=== PATIENT | female | born 1990 | race Caucasian/White ===

== ENCOUNTER 2024-09-28 00:57 | Inpatient (IN) | payer BC ==
[2024-09-28 01:20] VITALS: BMI 28.4
[2024-09-28] MEDS ORDERED: hydrALAZINE 20 MG/ML VIAL SLOW IVP PRN ×3 (01:42→13:57)
[2024-09-28] MEDS ORDERED: Promethazine HCl 25 MG/ML VIAL IM PRN ×2 (03:31→04:34)
[2024-09-28] MEDS ORDERED: Lidocaine 1% (PF) 30 ML VIAL SC PRN (03:31)
[2024-09-28] MEDS ORDERED: Methylergonovine 0.2 MG/ML VIAL IM PRN ×2 (03:31→13:57)
[2024-09-28] MEDS ORDERED: Misoprostol 200 MCG TAB PR PRN (03:31)
[2024-09-28] MEDS ORDERED: Tranexamic Acid 1,000 MG/10 ML VIAL IVP PRN (03:31)
[2024-09-28] MEDS ORDERED: Diphenoxylate HCl/Atropine Tablet PO PRN (03:31)
[2024-09-28] MEDS ORDERED: Carboprost 250 MCG/ML AMP IM PRN (03:31)
[2024-09-28] MEDS ORDERED: Ondansetron PF 4 MG/2 ML Vial IVP PRN ×3 (03:31→13:57)
[2024-09-28] MEDS ORDERED: Oxytocin 30 units/NS 500 ML 500 ML IV SCH ×3 (03:45→13:57)
[2024-09-28 04:09] LABS: Hematocrit 38.8 % (34.9-44.5); Hemoglobin 13.3 g/dL (12.0-15.5); Mean Corpuscular HGB CONC 34.3 g/dL (32.0-36.0); Mean Corpuscular Hemoglobin 31.4 pg (27.0-33.0); Mean Corpuscular Volume 91.7 fL (81.6-98.3); Mean Platelet Volume 12.4 fL (7.4-10.4); Platelet Count 169 10x3/uL (150-450); RBC Distribution Width 12.1 % (11.5-14.5); Red Blood Cell (RBC) Count 4.23 10x6/uL (3.90-5.03)
[2024-09-28] MEDS: fentaNYL/Ropivacaine Epidural 100 ML ONE (04:30)
[2024-09-28] MEDS ORDERED: ePHEDrine Sulfate 50 MG/10 ML VIAL SLOW IVP PRN (04:34)
[2024-09-28] MEDS ORDERED: Lactated Ringer's 500 ML IV PRN (04:34)
[2024-09-28] MEDS ORDERED: diphenhydrAMINE 50 MG/ML VIAL IVP PRN (04:34)
[2024-09-28] MEDS ORDERED: Moisturizing Cream (Eucerin) 113 GM JAR TOP PRN (04:34)
[2024-09-28] MEDS ORDERED: Naloxone HCl 0.4 mg/ml Vial IVP PRN ×2 (04:34)
[2024-09-28] MEDS ORDERED: Acetaminophen 325 MG TAB PO PRN (04:34)
[2024-09-28 04:40] LABS: Syphilis Antibody Nonreactive (Nonreactive); Syphilis Antibody Index 0.04 S/CO (<1.00 Non-Reactive)
[2024-09-28 04:41] LABS: HBsAg Index 0.19 S/CO (0-0.99); Hep B Surf Ag - L&D Non-Reactive S/CO (NonReactive)
[2024-09-28] MEDS ORDERED: fentaNYL 2 mcg/Ropivacaine 0.2% Epidural 100 ML CADD EPIDURAL SCH (04:45)
[2024-09-28] MEDS ORDERED: Communication Order-Pharmacy FS SCH (04:45)
[2024-09-28] MEDS ORDERED: Bupivacaine 0.25% HCL 30 ML VIAL ONE (08:00)
[2024-09-28] MEDS: Ondansetron PF 4 MG/2 ML Vial IVP SCH (13:55)
[2024-09-28] MEDS: Lactated Ringer's 1,000 ML IV SCH (13:55)
[2024-09-28] MEDS ORDERED: HYDROcodone/Acetaminophen 5/325 mg Tablet PO PRN ×2 (13:57)
[2024-09-28] MEDS ORDERED: Bisacodyl 10 MG SUPP PR PRN (13:57)
[2024-09-28] MEDS ORDERED: Milk Of Magnesia 30 ML UDCUP PO PRN (13:57)
[2024-09-28] MEDS ORDERED: Boostrix 0.5 ML (Tdap) VIAL (>/=7 yrs of age) IM ONE (13:57)
[2024-09-28] MEDS ORDERED: Lanolin Ointment 7 GM TUBE TOP PRN (13:57)
[2024-09-28] MEDS: Ibuprofen 800 MG TAB PO SCH (14:48)
[2024-09-28] MEDS: Benzocaine-Menthol 82.5 ML CAN TOP PRN (14:48)
[2024-09-28] MEDS: Ferrous Sulfate 325 MG TAB PO SCH (18:21)
[2024-09-28] MEDS: Docusate 100 MG CAP PO SCH (21:26)
[2024-09-29] MEDS: Prenatal Vitamin 1 TAB PO SCH (09:07)
[2024-09-29] MEDS: Witch Hazel 100 PAD JAR TOP PRN (14:52)
[2024-09-30 07:44] VITALS: BP 122/74; TEMP 98
== END 2024-09-30 15:15 | disposition home or self-care (01) | DRG 807 ==
LOC: CSHLD/OP 00:57 → EEVIPCON 00:57 → CSHLD 03:31 → CSHPED 16:49
PROVIDERS: ADMIT Obstetrics & Gynecology; ATTEND Obstetrics & Gynecology
PROC: 10E0XZZ Delivery of Products of Conception, External Approach (ICD-10-PCS; principal; 2024-09-28)
PROC: 0KQM0ZZ Repair Perineum Muscle, Open Approach (ICD-10-PCS; 2024-09-28)
DX: O70.1 Second degree perineal laceration during delivery (principal); Z37.0 Single live birth; Z3A.38 38 weeks gestation of pregnancy
CPT/HCPCS: 36415; 51702; 85027; 86780; 86850; 86900; 86901; 87340; 99285; J0665